=== PATIENT | female | born 1990 | race Hispanic/Latino ===

== ENCOUNTER 2017-11-13 18:39 | Emergency (ER) | payer MEDICAID, SELFPAY ==
[2017-11-13 19:27] LABS: #Basophils 0.1 thou/uL (0.0-0.2); #Eosinphils 0.2 thou/uL (0.0-0.7); #Lymphocytes 2.6 thou/uL (1.20-3.40); #Monocytes 0.7 thou/uL (0.11-0.59); #Neutrophils 5.7 thou/uL (1.40-6.50); %Basophils 0.8 % (0.0-1.0); %Eosinophils 1.8 % (0.0-10.0); %Lymphocytes 28.2 % (21.0-51.0); %Monocytes 7.1 % (0.0-10.0); Hemoglobin 13.5 g/dL (12.0-16.0); Mean Corpuscular HGB CONC 34.2 g/dL (32.0-36.0); Mean Corpuscular Hemoglobin 30.4 pg (27.0-31.0); Mean Corpuscular Volume 88.9 fl (81.0-99.0); Mean Platelet Volume 7.2 fL (7.4-10.4); Platelet Count 349 thou/uL (130-400); RBC Distribution Width 11.3 % (11.5-14.5); Red Blood Cell (RBC) Count 4.43 mill/uL (4.20-5.40); White Blood Cell (WBC) Count 9.2 thou/uL (4.8-10.8)
[2017-11-13 19:36] LABS: Bilirubin Negative (Negative); Blood, Urine Moderate (Negative); Clarity CLOUDY (Clear); Glucose, Urine (Dipstick) Negative (Negative); Leukocyte Trace (Negative); Nitrite Negative (Negative); Protein, Urine (Dipstick) Trace mg/dL (Neg-Trace); Specific Gravity, Urine 1.016 (1.002-1.036); Urobilinogen 0.2 mg/dL (0.2-1.0)
[2017-11-13 19:37] LABS: Bacteria/HPF Rare-Few HPF (None Seen); Hyaline Casts/LPF 0-3 HYALINE CAST LPF (0-3 Hyaline)
[2017-11-13 19:38] LABS: Pregnancy Test - Urine (BHCG) Negative (Negative); Pregu Control Background? CLEAR/WHITE (CLR/WHITE); Pregu Control Bar Appear? YES (CONTROL BAR); Specific Gravity 1.016 (1.002-1.036)
[2017-11-13] MEDS ORDERED: diphenhydrAMINE 50 MG/ML VIAL ONE (19:45)
[2017-11-13] MEDS ORDERED: Metoclopramide 10 MG/10 ML UDCUP ONE (19:45)
[2017-11-13] MEDS ORDERED: Ketorolac Tromethamine 30 MG/ML VIAL ONE (19:45)
[2017-11-13 19:48] LABS: ALT (SGPT) 119 U/L (8-55); AST (SGOT) 76 U/L (5-34); Albumin 4.7 g/dL (3.5-5.0); Alkaline Phosphatase 95 U/L (40-150); Anion Gap 13 mmol/L (10-20); BUN (Urea Nitrogen) 9 mg/dL (7.0-18.7); Bilirubin, Total 0.3 mg/dL (0.2-1.2); Calc. Creatinine Clearance 0 mL/min (70-130); Calcium 9.6 mg/dL (7.8-10.44); Carbon Dioxide 26 mmol/L (22-29); Chloride 102 mmol/L (98-107); Estimated GFR-MDRD Greater than 90; Globulin 3.5 g/dL (2.4-3.5); Glucose 97 mg/dL (70-105); Potassium 3.6 mmol/L (3.5-5.1); Protein, Total 8.2 g/dL (6.0-8.3); Sodium 137 mmol/L (136-145)
[2017-11-13] MEDS ORDERED: Ondansetron ODT 4 MG TAB ONE (19:55)
== END 2017-11-13 21:49 | disposition home or self-care (01) ==
LOC: ERS 18:39
DX: R51 Headache (principal)
CPT/HCPCS: 36415; 80053; 81003; 81015; 81025; 85025; 87086; 96361; 96374; 96375; J1200; J1885; Q0162

== ENCOUNTER 2019-10-30 09:41 | Emergency (ER) | payer SELFPAY ==
[2019-10-30 10:31] LABS: #Lymphocytes 1.5 thou/uL (1.20-3.40); #Monocytes 0.4 thou/uL (0.11-0.59); #Neutrophils 10.4 thou/uL (1.40-6.50); %Basophils 0.2 % (0.0-1.0); %Eosinophils 0.3 % (0.0-10.0); %Monocytes 3.4 % (0.0-10.0); %Neutrophils 84.1 % (42.0-75.0); Hemoglobin 13.2 g/dL (12.0-16.0); Mean Corpuscular HGB CONC 34.9 g/dL (32.0-36.0); Mean Corpuscular Hemoglobin 31.4 pg (27.0-31.0); Mean Corpuscular Volume 89.8 fL (78.0-98.0); Mean Platelet Volume 8.5 fL (7.4-10.4); Platelet Count 250 thou/uL (130-400); RBC Distribution Width 11.9 % (11.5-14.5); White Blood Cell (WBC) Count 12.4 thou/uL (4.8-10.8)
[2019-10-30 10:38] LABS: BHCG - Serum POSITIVE (NEGATIVE); Pregs Control Background? CLEAR/WHITE (CLR/WHITE); Pregs Control Bar Appear? YES (CONTROL BAR)
[2019-10-30 10:48] LABS: ALT (SGPT) 10 U/L (8-55); AST (SGOT) 11 U/L (5-34); Albumin 4.1 g/dL (3.5-5.0); Alkaline Phosphatase 58 U/L (40-110); Anion Gap 13 mmol/L (10-20); BUN (Urea Nitrogen) 7 mg/dL (7.0-18.7); Bilirubin, Total 0.3 mg/dL (0.2-1.2); Calc. Creatinine Clearance 0 mL/min (70-130); Calcium 9.1 mg/dL (7.8-10.44); Carbon Dioxide 21 mmol/L (22-29); Chloride 107 mmol/L (98-107); Estimated GFR-MDRD Greater than 90; Globulin 3.3 g/dL (2.4-3.5); Glucose 99 mg/dL (70-105); Lipase 11 U/L (8-78); Potassium 3.7 mmol/L (3.5-5.1); Protein, Total 7.4 g/dL (6.0-8.3); Sodium 137 mmol/L (136-145)
[2019-10-30] MEDS ORDERED: Acetaminophen 500 MG TAB ONE (10:56)
[2019-10-30 11:26] LABS: Bacteria/HPF None Seen HPF (None Seen)
[2019-10-30 11:30] LABS: Bilirubin Negative (Negative); Blood, Urine Trace (Negative); Clarity Extra Turbid (Clear); Glucose, Urine (Dipstick) Normal (Negative); Leukocyte 25 Leu/uL (Negative); Nitrite Negative (Negative); Protein, Urine (Dipstick) 20 mg/dL (Neg-Trace); Urobilinogen Normal mg/dL (Less than 2)
--- NOTE | 2019-10-30 12:04 | ULT ---
LIMITED OB ULTRASOUND GREATER THAN 14 WEEKS WELL EVALUATION OF THE RIGHT LOWER QUADRANT: HISTORY: Right lower quadrant pain. Evaluate intrauterine . FINDINGS: A single viable intrauterine fetus is noted. heart rate 132 b.p.m. Amniotic fluid is within n ormal limits. Placenta appears to be primarily right-sided and posterior and low-lying with possible placenta previa at this early age. stomach and lower extremities were visualized. Otherwise, anatomy was incompletely seen. Biometry: BPD 2.5 cm-14 weeks 3 days Head circumference 9.5 cm-14 weeks 3 days Abdominal circumference 8.0 cm-14 weeks 3 days Femur length 1.5 cm-14 weeks 2 days Right ovary is visualized measuring 1.9 x 3.3 x 3.5 cm. Left ovary is visualized measuring 3.4 x 1.6 x 3.5 cm VASCULAR DUPLEX WITH COLOR AND SPECTRAL DOPPLER IMAGING: There is flow documented to both ovaries. No evidence for ovarian torsion. No abnormal pelvic fluid collection. Evaluation of the right lower quadrant region demonstrates no evidence for abscess or abnormal fluid collection. A normal appendix was not visualized. IMPRESSION: 1. Early viable intrauterine at 14 weeks 2 days, estimated date of confinement 04/27/2020. 2. Somewhat low-lying posterior right-sided placenta. 3. No pelvic abscess or abnormal fluid collection. 4. Unremarkable right and left ovaries. 5. Right lower quadrant evaluation demonstrated no evidence for abscess or abnormal fluid collection . A normal appendix is not visualized. POS: [facility]
== END 2019-10-30 12:45 | disposition home or self-care (01) ==
LOC: ERS 09:41
DX: O99.89 Other specified diseases and conditions complicating pregnancy, childbirth and the puerperium (principal); R10.31 Right lower quadrant pain; O21.9 Vomiting of pregnancy, unspecified; Z3A.14 14 weeks gestation of pregnancy
CPT/HCPCS: 36415; 76815; 80053; 81003; 81015; 83690; 84703; 85025

== ENCOUNTER 2020-02-25 13:27 | Inpatient (IN) | payer OTHER, SELFPAY ==
[2020-02-25 14:18] VITALS: BMI 37.8
--- NOTE | 2020-02-25 14:27 | PDOC.FPROB ---
FMR OB H&P: HPI - History of Present Illness Chief Complaint: preE work up History of Present Illness: Pt is a 29 yo @30.6wks via LMP/.6wk sono presents for evaluation of preE. Pt was seen in clinic last week on and found to have elevated pressures 140s/90s. They did a preE workup and found an elevated urine protein. They attempted to contact patient but were unable to reach her until today. She reported that she has been taking her blood pressure at home and today it was 160/80. [facility] physician advised her to come to hospital. She also complains of headache for 1 week, twice a day lasting about 20 minutes and associated vision changes (spots). Minor edema of feet noted daily. Denies abdominal pain, contractions, CP, SOB, vaginal bleeding, discharge or loss of fluid. Of note, pt had symptoms of COVID starting on January 27 and tested positive on January 31. FMR OB H&P: Current - Care : 3 Para: 2 Gestational age: 30.6wks Dating Criteria: LMP/06.05wk sono - OB Labs Blood type: A RH: positive HIV: negative RPR: negative HepBsAg: negative Rubella: immune Gonorrhea: negative Chlamydia: negative 1 hour gtt: 111 H&H: 11.6/34.1 on 02/20/20 Platelets: 268 Additional labs: TSH 3.87 A1C 5.2 HPV + Spot Prot/Cr 0.32 on 02/20/20 FMR OB H&P: History - Past Medical History PMH: none - OB History OB History: LTCS 2010, [employer] - [employer] History [employer] History: Pap LSIL - Surgical History Sx History: 2011 - Social History Social History: no T/A/D FMR OB H&P: Medications - Current Home Medications: Medication Instructions Recorded Confirmed Type PNV#24/Iron AA Gisela/FA/DHA 1 each PO DAILY 02/12/16 02/25/20 History [ DHA+Complete ] Allergies/Adverse Reactions: Allergies Allergy/AdvReac Type Severity Reaction Status Date / Time No Known Allergies Allergy Verified 02/25/20 14:16 FMR OB H&P: ROS - Review of Systems General: denies: fever/chills Eyes: reports: floaters ENT: denies: nasal congestion Cardiovascular: denies: chest pain, palpitation Respiratory: denies: cough, congestion Gastrointestinal: denies: abdominal pain, nausea, vomiting Genitourinary (Female): denies: dysuria, vaginal discharge, vaginal bleeding, contractions Musculoskeletal: denies: pain Neurologic: denies: numbness, syncope Integumentary: denies: itching, rash Hematologic/Lymphatic: denies: prolonged or excessive bleeding FMR OB H&P: Vital Signs - Maternal Vital signs: 143/88, 145/80 - Heart Tones Baseline: 150 Variability: moderate Acceleration: present Deceleration: absent Category: category 1 FMR OB H&P: Physical Exam - Physical Exam General: NAD HEENT: normocephalic and atraumatic, grossly normal vision, grossly normal hearing Neck: supple, trachea midline Breast: symmetric Heart: RRR, normal S1/S2 General: CTAB, no respiratory distress Abdomen: soft, gravid Musculoskeletal: pulses present Neurological: cranial nerves II through XII intact Skin: no rash Lymphatic: no unusual bruising or bleeding Psychiatric: intact recent and remote memory FMR OB H&P: A/P Discussion: Date/Time: 02/25/20 1427 29yo @30.6wks presents for preE workup PIH -newly diagnosed, systolic pressure 140s last week at [facility], today was 160/80 at home -Urine Prot/Cr 0.32 at [facility] on 02/20/20 -serial BPs, NST qshift, CBC, CMP, Urine Prot/Cr sIUP -FHT Cat 1, continue external monitor -f/u outpatient at [facility] Hx of COVID -positive test on 02/01/20 -[place], currently asymptomatic Dispo: Stable, here for PIH and preE work up, possible admit for observation pending labs and BPs LOS<48hrs. This H&P was discussed with [Edmond] and [Ravindra] who agree with the above documentation and plan. Addendum - Attending - Attending Attestation Date/Time: 02/28/20 0908 I personally evaluated the patient and discussed the management with Dr. maya I agree with the History, Examination, Assessment and Plan documented above with any addition or exceptions noted below. PT with persistent mild range pressures, p/c ratio of 1, headache resolved with tylenol. Will admit for bp monitoring and steroids.
[2020-02-25] MEDS ORDERED: hydrALAZINE 20 MG/ML VIAL SLOW IVP PRN ×2 (14:34→15:51)
[2020-02-25 14:53] LABS: #Eosinphils 0.1 thou/uL (0.0-0.7); #Lymphocytes 2.2 thou/uL (1.20-3.40); #Monocytes 0.7 thou/uL (0.11-0.59); %Basophils 0.3 % (0.0-1.0); %Eosinophils 0.6 % (0.0-10.0); %Lymphocytes 19.8 % (21.0-51.0); %Monocytes 6.7 % (0.0-10.0); %Neutrophils 72.6 % (42.0-75.0); Hemoglobin 13.1 g/dL (12.0-16.0); Mean Corpuscular HGB CONC 33.8 g/dL (32.0-36.0); Mean Corpuscular Hemoglobin 30.6 pg (27.0-31.0); Mean Corpuscular Volume 90.6 fL (78.0-98.0); Platelet Count 244 thou/uL (130-400); RBC Distribution Width 11.6 % (11.5-14.5); Red Blood Cell (RBC) Count 4.29 mill/uL (4.20-5.40); White Blood Cell (WBC) Count 11.1 thou/uL (4.8-10.8)
[2020-02-25 15:15] LABS: ALT (SGPT) 9 U/L (8-55); AST (SGOT) 14 U/L (5-34); Albumin 3.5 g/dL (3.5-5.0); Alkaline Phosphatase 155 U/L (40-110); Anion Gap 13 mmol/L (10-20); BUN (Urea Nitrogen) 11 mg/dL (7.0-18.7); Bilirubin, Total 0.2 mg/dL (0.2-1.2); Calc. Creatinine Clearance 212 mL/min (70-130); Calcium 8.7 mg/dL (7.8-10.44); Carbon Dioxide 19 mmol/L (22-29); Chloride 105 mmol/L (98-107); Estimated GFR-MDRD Greater than 90; Globulin 3.2 g/dL (2.4-3.5); Glucose 79 mg/dL (70-105); Potassium 4.1 mmol/L (3.5-5.1); Protein, Total 6.7 g/dL (6.0-8.3); Sodium 133 mmol/L (136-145)
[2020-02-25] MEDS ORDERED: Ondansetron PF 4 MG/2 ML Vial IVP PRN (15:51)
[2020-02-25] MEDS ORDERED: Promethazine HCl 25 MG/ML VIAL IM PRN (15:51)
[2020-02-25] MEDS ORDERED: Acetaminophen 500 MG TAB PO SCH (21:15)
[2020-02-25] MEDS: Betamet Acet/Betamet Na Ph 30 MG/5 ML VIAL IM SCH (22:56)
--- NOTE | 2020-02-25 22:58 | PDOC.BPN ---
- Brief Progress Note Patient's BP improved with monitoring, was in mild range. Protein:Creatinine ratio was 1. Patient had FINNEY that was improved with 1 dose of Tylenol. Will admit to PP floor to continue to monitor BP and sx. A/P: 29yo @30.6wks presents for preE workup PIH -newly diagnosed, systolic pressure 140s last week at [facility], today was 160/80 at home, improving to 120s/80s in triage -Urine Prot/Cr 0.[address] [facility] on 02/20/20, 1.0 on 02/25/20 in triage -serial BPs q2h, NST qshift, CBC, CMP sIUP - NST BID -f/u outpatient at [facility] Hx of COVID -positive test on 02/01/20 -[place], currently asymptomatic Dispo: Stable, here for PIH and preE work up, admit for observation of sx and BPs LOS likely <48hrs.
[2020-02-26 05:18] LABS: Hemoglobin 14.1 g/dL (12.0-16.0); Mean Corpuscular HGB CONC 35.2 g/dL (32.0-36.0); Mean Corpuscular Hemoglobin 32.3 pg (27.0-31.0); Mean Corpuscular Volume 91.8 fL (78.0-98.0); Mean Platelet Volume 8.9 fL (7.4-10.4); Platelet Count 246 thou/uL (130-400); RBC Distribution Width 11.5 % (11.5-14.5); Red Blood Cell (RBC) Count 4.37 mill/uL (4.20-5.40); White Blood Cell (WBC) Count 11.5 thou/uL (4.8-10.8)
[2020-02-26 05:40] LABS: ALT (SGPT) 11 U/L (8-55); AST (SGOT) 15 U/L (5-34); Albumin 3.6 g/dL (3.5-5.0); Alkaline Phosphatase 168 U/L (40-110); Anion Gap 12 mmol/L (10-20); BUN (Urea Nitrogen) 14 mg/dL (7.0-18.7); Bilirubin, Total 0.2 mg/dL (0.2-1.2); Calc. Creatinine Clearance 192 mL/min (70-130); Calcium 9.3 mg/dL (7.8-10.44); Carbon Dioxide 19 mmol/L (22-29); Chloride 105 mmol/L (98-107); Estimated GFR-MDRD Greater than 90; Globulin 3.6 g/dL (2.4-3.5); Glucose 114 mg/dL (70-105); Potassium 4.9 mmol/L (3.5-5.1); Protein, Total 7.2 g/dL (6.0-8.3); Sodium 131 mmol/L (136-145)
--- NOTE | 2020-02-26 06:56 | PDOC.OBAPN ---
FMR OB AP PN: Sub - Interval History Hospital Day: 2 Chief Complaint: none, resting comfortably Indentification: 29F @ 31wga admitted for BP monitoring, diagnosed with pre -e Interval History: FINNEY resolved, BP stable this morning, s/p 1 dose of steroids FMR OB AP PN: Obj - Maternal Vital signs: BP: [127/75] HR: [73] RR: [17] Pox: [99]% on [RA] Wt: [90.71kg] FMR OB AP PN: Exam - Physical Exam General: NAD, awake, alert and oriented HEENT: normocephalic and atraumatic, EOMI Neck: supple, FROM Chest: non-tender to palpation Heart: RRR, normal S1/S2 General: CTAB, no respiratory distress Abdomen: soft, gravid Musculoskeletal: normal gait and station, pulses present, FROM in all four extremities Neurological: cranial nerves II through XII intact, no focal deficit Skin: no rash, good tugor Lymphatic: no unusual bruising or bleeding, no purpura Psychiatric: intact recent and remote memory, good judgement and insight, normal mood and affect FMR OB AP PN: Data - Labs Lab results: Laboratory Results - last 24 hr 02/25/20 02/25/20 02/25/20 13:45 13:45 14:43 WBC RBC Hgb Hct MCV MCH MCHC RDW Plt Count MPV Neutrophils % Lymphocytes % Monocytes % Eosinophils % Basophils % Neutrophils # Lymphocytes # Monocytes # Eosinophils # Basophils # Sodium 133 L Potassium 4.1 Chloride 105 Carbon Dioxide 19 L Anion Gap 13 BUN 11 Creatinine 0.56 L Estimated GFR (MDRD) Greater than 90 Glucose 79 Calcium 8.7 Total Bilirubin 0.2 AST 14 ALT 9 Alkaline Phosphatase 155 H Serum Total Protein 6.7 Albumin 3.5 Globulin 3.2 Albumin/Globulin Ratio 1.1 L U Random Total Protein 79 H Urine Creatinine 79.93 02/25/20 02/26/20 02/26/20 14:43 04:43 04:43 WBC 11.1 H 11.5 H RBC 4.29 4.37 Hgb 13.1 14.1 Hct 38.9 40.1 MCV 90.6 91.8 MCH 30.6 32.3 H MCHC 33.8 35.2 RDW 11.6 11.5 Plt Count 244 246 MPV 9.0 8.9 Neutrophils % 72.6 Lymphocytes % 19.8 L Monocytes % 6.7 Eosinophils % 0.6 Basophils % 0.3 Neutrophils # 8.0 H Lymphocytes # 2.2 Monocytes # 0.7 H Eosinophils # 0.1 Basophils # 0.0 Sodium 131 L Potassium 4.9 Chloride 105 Carbon Dioxide 19 L Anion Gap 12 BUN 14 Creatinine 0.62 Estimated GFR (MDRD) Greater than 90 Glucose 114 H Calcium 9.3 Total Bilirubin 0.2 AST 15 ALT 11 Alkaline Phosphatase 168 H Serum Total Protein 7.2 Albumin 3.6 Globulin 3.6 H Albumin/Globulin Ratio 1.0 L U Random Total Protein Urine Creatinine FMR OB AP PN: A/P - Problem List (1) Pre-eclampsia Current Visit: Yes Status: Acute Code(s): O14.90 - UNSPECIFIED PRE-ECLAMPSIA , UNSPECIFIED TRIMESTER Disposition: 29yo @31wks is admitted for BP monitoring for pre-e #Pre-eclampsia -newly diagnosed, systolic pressure 140s last week at [facility], yesterday was 160/80 at home -multiple elevated BP last night, stable BP 120s-130s/70s-80s systolic this morning -Urine Prot/Cr 0.32 at [facility] on 02/20/20, 0.98 on 02/24 -received 1 dose of steroids last night, plan for second dose today -continue closely monitoring BP -patient reports that she has a BP cuff at home, if BP mild and patient is discharged (possibly tmrw) will need 2x/week f/u at [facility] after discharge for close monitoring of BP and weekly labs #sIUP -@31wks -NST qshift, will continue to monitor -f/u outpatient at [facility] 2x/wk after discharge #Hx of COVID -positive test on 02/01/20 -[place], currently asymptomatic Dispo: Stable, BP improved this morning. Patient to have BP monitoring closely today with second dose of steroids later this evening. If BP continue to be mild without pressures in the severe range can consider discharge, possibly tomorrow, with close f/u at [facility] (2x/wk visits with weekly labs) Discussion: Date/Time: 02/26/20 0654 This H&P was discussed with Dr. Waite who agrees with the above documentation and plan. Signature: Gwen Agudelo MD PGY-2
--- NOTE | 2020-02-26 10:56 | PDOC.BPN ---
<Gwen Agudelo - Last Filed: 02/26/20 10:55> - Brief Progress Note Patient doing well, no complaints. NST: reactive strip, baseline 140, moderate variability, +accels Discussed plan to continue to monitor BP throughout the day, patient agreeable with the plan of care. <Grey Saleh - Last Filed: 02/26/20 11:22> Addendum - Attending - Attending Attestation Date/Time: 02/26/20 1122 I personally evaluated the patient and discussed the management with Dr. Agudleo. I agree with the Assessment and Plan documented above.
[2020-02-26] MEDS: Betamet Acet/Betamet Na Ph 30 MG/5 ML VIAL IM SCH (22:27)
--- NOTE | 2020-02-27 06:50 | PDOC.OBAPN ---
FMR OB AP PN: Sub - Interval History Chief Complaint: none, FINNEY resolved, denies vision changes, swelling Indentification: 29F @ 31.1wga admitted for BP monitoring for pre-e Interval History: BP have been stable, no severe range pressures; NST reactive qshift FMR OB AP PN: Obj - Maternal Vital signs: BP: [128/76] HR: [80] RR: [18] Tmax: [98.3F] Pox: [96]% on [RA] Wt: [90.71kg] - Urine output I&O: 02/25/20 02/26/20 02/27/20 06:59 06:59 06:59 Intake Total 450 Balance 450 FMR OB AP PN: Exam - Physical Exam General: NAD, awake, alert and oriented HEENT: normocephalic and atraumatic, EOMI Neck: supple, FROM Chest: non-tender to palpation Heart: RRR, normal S1/S2 General: CTAB, no respiratory distress Abdomen: soft, gravid Musculoskeletal: pulses present, FROM in all four extremities Neurological: cranial nerves II through XII intact, no tremor Skin: no rash, good tugor Lymphatic: no unusual bruising or bleeding, no purpura Psychiatric: intact recent and remote memory, good judgement and insight FMR OB AP PN: A/P - Problem List (1) Pre-eclampsia Current Visit: Yes Status: Acute Code(s): O14.90 - UNSPECIFIED PRE-ECLAMPSIA , UNSPECIFIED TRIMESTER Disposition: 29yo @31.1wks is admitted for BP monitoring for pre-e #Pre-eclampsia -newly diagnosed, systolic pressure 140s last week at [facility], 02/24 was 160/80 at home -stable BP 120s-130s/70s-80s throughout the day yesterday, highest 140/80 -Urine Prot/Cr 0.32 at [facility] on 02/20/20, 0.98 on 02/24 -received 2nd dose of steroids last night -continue closely monitoring BP, encouraged patient to monitor BP TID at home and record them; discussed coming to ED with any BP >160/110 -patient reports that she has a BP cuff at home, plan to d/c with close f/u. Will schedule appt for patient at [facility] 1x/week, with weekly labs, and testing BPP/NST 1x/week with [facility]. #sIUP -@31.1wks -NST al NST has been reactive -f/u outpatient at [facility] 1x/wk and [facility] US 1x/wk for testing after discharge #Hx of COVID -positive test on 02/01/20 -[place], currently asymptomatic Dispo: Stable, BP stable throughout the day yesterday without any severe pressures. S/p 2 doses of steroids. Patient to monitor BP TID at home and record values. Patient to be discharged today, with close f/u at [facility] (1x/wk visits with weekly labs) and with [facility] (1x/wk for BPP/NST). Will monitor BP at both locations. ED precautions discussed. Discussion: Date/Time: 02/27/20 0648 This H&P was discussed with [Therese] who agrees with the above documentation and plan. Signature: Gwen Agudelo MD PGY-2 Addendum - Attending - Attending Attestation Date/Time: 02/27/20 0705 I personally evaluated the patient and discussed the management with Dr. Agudelo. I agree with the Assessment and Plan documented above.
[2020-02-27 08:10] VITALS: BP 125/70; TEMP 98.5
== END 2020-02-27 09:58 | disposition home or self-care (01) | DRG 833 ==
LOC: L&D/OP 13:27 → 3SE 22:30
PROVIDERS: ADMIT Obstetrics & Gynecology; ATTEND Obstetrics & Gynecology
DX: O13.3 Gestational [pregnancy-induced] hypertension without significant proteinuria, third trimester (principal); Z3A.30 30 weeks gestation of pregnancy; O14.93 Unspecified pre-eclampsia, third trimester
CPT/HCPCS: 36415; 36600; 59025; 80053; 82570; 84156; 85025; 85027; 99285; J0702

== ENCOUNTER 2020-02-28 13:16 | Inpatient (IN) | payer MEDICAID, OTHER, SELFPAY ==
[2020-02-28] MEDS ORDERED: hydrALAZINE 20 MG/ML VIAL SLOW IVP PRN (13:55)
--- NOTE | 2020-02-28 13:56 | PDOC.FPROB ---
FMR OB H&P: HPI - History of Present Illness Chief Complaint: Sent from [facility] for IUGR, 11/05 BPP Indentification: 29yo @31.2wks by LMP c/w 11.6wk US History of Present Illness: 29yo @31.2wks by LMP c/w 11.6wk US presents at recommendation of [facility]. She was seen today and found to have multiple severe range pressures with the lowest BP being 152/88. BPP 11/05. She reports minimal FM since last night. Endorses some SOB and FINNEY. Intermittent edema. Discharged yesterday after admission for preeclampsia workup. BPs were controlled at that time, Urine pro/ cr 0.9. Received steroids at that time. Primary Care Physician: Dr Pruitt FMR OB H&P: Current - Care : 3 Para: 2001 Gestational age: 30.6wks Due date: 04/29/20 Dating Criteria: LMP c/w 11.6wk US Course/Complications: Preeclampsia. COVID on 02/01/20 - OB Labs Blood type: A RH: positive HIV: negative RPR: negative HepBsAg: negative Rubella: immune Gonorrhea: negative Chlamydia: negative 1 hour gtt: 111 A1c: 5.2 H&H: 14.1/40.1 on 02/26/20 Platelets: 246 on 02/26/20 - First Trimester Ultrasound First trimester: 11.6wks FMR OB H&P: History - Past Medical History PMH: Denies - OB History OB History: LTCS 2011 @37wks, 2015 - [employer] History [employer] History: Pap LSIL - Surgical History Sx History: 2010 - Social History Social History: Denies alcohol, drug and tobacco use - Family History Family History: Denies FMR OB H&P: Medications - Current Home Medications: Medication Instructions Recorded Confirmed Type PNV#24/Iron AA Gisela/FA/DHA 1 each PO DAILY 02/12/16 02/28/20 History [ DHA+Complete ] Allergies/Adverse Reactions: Allergies Allergy/AdvReac Type Severity Reaction Status Date / Time No Known Allergies Allergy Verified 02/28/20 14:01 FMR OB H&P: ROS - Review of Systems General: denies: fever/chills, fatigue Eyes: denies: vision changes, scotomas, floaters ENT: denies: nasal congestion, rhinorrhea Cardiovascular: reports: edema. denies: chest pain, palpitation Respiratory: reports: shortness of breath. denies: cough, congestion Gastrointestinal: denies: abdominal pain, nausea, vomiting Genitourinary (Female): denies: vaginal discharge, vaginal bleeding, contractions, vaginal pressure Neurologic: denies: numbness Integumentary: denies: itching, rash, lesions FMR OB H&P: Vital Signs - Maternal Vital signs: BP: HR: Temp: RR: - Heart Tones Baseline: 150 Variability: minimal Acceleration: absent Deceleration: absent Category: category 2 FMR OB H&P: Physical Exam - Physical Exam General: NAD, awake, alert and oriented HEENT: normocephalic and atraumatic, PERRLA, MMM, conjunctiva clear, no scleral icterus, grossly normal hearing Neck: supple, trachea midline Heart: RRR, no murmurs/rubs/gallops General: CTAB, no respiratory distress, good air movement, no rales/rhonchi, no wheezing, no retractions Abdomen: soft, gravid, bowel sound present Musculoskeletal: pulses present, no misalignment/asymmetry, no atrophy Neurological: no focal deficit Skin: no rash, good tugor Deviation from normal: No edema Lymphatic: no unusual bruising or bleeding Psychiatric: intact recent and remote memory, good judgement and insight, normal mood and affect - Pelvic Exam Vulva: no masses, no lesions, no discharge, no blood Membranes: Intact Presentation: Cephalic at [facility] US today FMR OB H&P: A/P Disposition: 29yo @31.2wks by LMP c/w 11.6wk US presents for preeclampsia, IUGR, BPP /8 sIUP with NRFHTs & IUGR - Anesthesia consulted - [facility] report faxed over with recommendation for delivery. Pt had planned to have rLTCS for due to prior. - [place] 6% for gestational age - Diet: NPO - Received last dose of steroids on 02/25, concern for delivery at that time due to preeclampsia - Thomas consulted - Will admit for rLTCS, labs pending at this time. Preeclampia - BPs currently <140/90 - Continue to monitor closely - Likely Mg after delivery COVID positive on 01/31 - Asymptomatic. Out of window for isolation. Does not meet criteria for retesting. LSIL/HPVHR+ - Colpo 6wk PP Discussion: Date/Time: 02/28/20 9515 This H&P was discussed with Dr. Saleh and Dr. Cristobal who agree with the above documentation and plan. Addendum - Attending - Attending Attestation Date/Time: 02/28/20 1621 I personally evaluated the patient and discussed the management with Dr. Pruitt. 31 week IUP with prev. C/S and h/o COVID now with PIH and IUGR. Steroids given less than 1 week ago. Seen in MFM office with BPP of 11/05, advised to deliver. For repeat C/S once labs are back. I agree with the History, Examination, Assessment and Plan documented above.
[2020-02-28] MEDS ORDERED: Ondansetron PF 4 MG/2 ML Vial IVP PRN (14:18)
[2020-02-28] MEDS ORDERED: Promethazine HCl 25 MG/ML VIAL IM PRN (14:18)
[2020-02-28] MEDS: Lactated Ringer's 1,000 ML IV SCH (14:20)
[2020-02-28] MEDS ORDERED: Bicitra 30 ML UDCUP ONE (14:28)
[2020-02-28] MEDS ORDERED: Bicitra 30 ML UDCUP PO SCH (14:30)
[2020-02-28] MEDS ORDERED: CEFAZOLIN 2 GM in Premix Bag 1 BAG IVPB SCH (14:30)
[2020-02-28 14:37] LABS: #Monocytes 1.2 thou/uL (0.11-0.59); #Neutrophils 9.9 thou/uL (1.40-6.50); %Basophils 0.1 % (0.0-1.0); %Eosinophils 0.3 % (0.0-10.0); %Lymphocytes 20.9 % (21.0-51.0); %Monocytes 8.5 % (0.0-10.0); %Neutrophils 70.2 % (42.0-75.0); Hemoglobin 12.2 g/dL (12.0-16.0); Mean Corpuscular HGB CONC 34.7 g/dL (32.0-36.0); Mean Corpuscular Hemoglobin 31.6 pg (27.0-31.0); Mean Platelet Volume 9.1 fL (7.4-10.4); Platelet Count 260 thou/uL (130-400); RBC Distribution Width 11.6 % (11.5-14.5); Red Blood Cell (RBC) Count 3.86 mill/uL (4.20-5.40); White Blood Cell (WBC) Count 14.2 thou/uL (4.8-10.8)
[2020-02-28] MEDS ORDERED: MORPHINE 5 MG/10 ML PF VIAL ONE (14:46)
[2020-02-28] MEDS ORDERED: Morphine 4 MG/ML VIAL ONE (14:46)
[2020-02-28] MEDS ORDERED: Oxytocin 10 UNITS/ML VIAL ONE ×2 (14:47→15:55)
[2020-02-28] MEDS ORDERED: Ketorolac Tromethamine 30 MG/ML VIAL ONE (14:47)
[2020-02-28] MEDS ORDERED: Ondansetron PF 4 MG/2 ML Vial ONE (14:47)
[2020-02-28] MEDS ORDERED: PHENYLEPHRINE-NS 100 MCG/ML 10 ML SYRINGE ONE (14:48)
[2020-02-28] MEDS ORDERED: EPHEDRINE 25 MG/5 ML SYRINGE ONE (14:48)
[2020-02-28 14:55] LABS: ALT (SGPT) 8 U/L (8-55); AST (SGOT) 17 U/L (5-34); Albumin 3.5 g/dL (3.5-5.0); Alkaline Phosphatase 153 U/L (40-110); Anion Gap 12 mmol/L (10-20); BUN (Urea Nitrogen) 15 mg/dL (7.0-18.7); Bilirubin, Total 0.2 mg/dL (0.2-1.2); Calc. Creatinine Clearance 0 mL/min (70-130); Carbon Dioxide 22 mmol/L (22-29); Chloride 106 mmol/L (98-107); Estimated GFR-MDRD Greater than 90; Globulin 3.2 g/dL (2.4-3.5); Glucose 85 mg/dL (70-105); Protein, Total 6.7 g/dL (6.0-8.3); Sodium 136 mmol/L (136-145)
[2020-02-28 15:16] LABS: Syphilis Antibody Nonreactive (Nonreactive); Syphilis Antibody Index 0.03 S/CO (<1.00 Non-Reactive)
[2020-02-28 15:17] LABS: HBSAg Index 0.17 S/CO (0-0.99); Hep B Surf Ag Non-Reactive S/CO (NonReactive)
[2020-02-28 15:26] VITALS: BMI 37.5
[2020-02-28] MEDS ORDERED: Fentanyl 100 MCG/2 ML VIAL ONE ×2 (15:37→16:21)
[2020-02-28] MEDS ORDERED: Dexamethasone 4 mg/ml Vial ONE (15:40)
[2020-02-28 16:12] LABS: Actual Bicarbonate (HCO3v) 27 mEq/L (22-28); Base Excess -1.2 mEq/L (-2.0 to +3.0); pH (Cord, venous) 7.28 (7.32-7.43)
[2020-02-28 16:13] LABS: Actual Bicarbonate (HCO3a) 25.1 mEq/L (22-28); Base Excess (BEa) -1.9 mEq/L (-2.0 to +3.0)
[2020-02-28] MEDS ORDERED: Calcium Gluconate 4.6 MEQ in Sodium Chloride 0.9% 100 ML IVPB PRN (16:41)
[2020-02-28] MEDS: Magnesium Sulfate 20 gm/500 ml 20 GM/500 ML BAG IVPB SCH (18:39)
--- NOTE | 2020-02-28 20:59 | PDOC.BPN ---
<Elliott Fuller - Last Filed: 02/28/20 20:57> - Brief Progress Note Magnesium Note Template S: Patient is a 29 yo who is s/p 31.2 wk LTCS 2/2 preE on 02/28/20 @ 1536. She endorses mild pain over incisional site and fatigue. Mg was started at 1630 2/2 preE. She denies SOB, FINNEY, vision changes. She has had 75 mL UOP over first two hours of Mg infusion- admission SCr is 0.58. She denied flatus and ambulation. O: BP: 155/91 - 7 elevated BP in 130s to 150s, 4 of those are 140-150 SBP. DBP in 80s-90s. Urine output is 75 mL/ 2 hrs General Appearance: sleepy, easily arousable, able to answer questions Cardiovascular: RRR, no MRG Lungs: CTAB, no crackles or wheezes Abdomen: Soft, NT, ND, uterus felt below umbilicus, incision dressed, CDI Extremities: no ankle clonus, 2+ patellar DTR A/P: Patient is a 29 yo who is s/p 31.2 wk LTCS 2/2 preE on 02/28/20 @ 1536 on MgSO4 for Preeclampsia No signs/symptoms of Mg toxicity (if there are none). Continue Mg treatment, next check 4 hrs @ 0030 Continue to monitor <Grey Saleh - Last Filed: 02/28/20 23:00> Addendum - Attending - Attending Attestation Date/Time: 02/28/20 8594 I personally evaluated the patient and discussed the management with Dr. Fuller and Dr. John. I agree with the History, Examination, Assessment and Plan documented above.
--- NOTE | 2020-02-29 00:45 | PDOC.BPN ---
<Elliott Fuller - Last Filed: 02/29/20 00:47> - Brief Progress Note Patient is a 29 yo who is s/p 31.2 wk LTCS 2/2 preE on 02/28/20 @ 1536. She endorses mild pain over incisional site and fatigue. She denies SOB, FINNEY, vision changes. Admission SCr is 0.58. She denied ambulation. BP: normotensive since last check, 120-130/70-80 Urine output is 325 mL/ 4 hrs General Appearance: sleepy, easily arousable, able to answer questions Cardiovascular: RRR, no MRG Lungs: CTAB, no crackles or wheezes Abdomen: Soft, NT, ND Extremities: no ankle clonus, 2+ patellar DTR A/P Patient is a 29 yo who is s/p 31.2 wk LTCS 2/2 preE on 02/28/20 @ 1536 on MgSO4 for Preeclampsia No signs/symptoms of Mg toxicity. Continue Mg treatment (started 1630 02/27), next check 4 hrs @ 0430 Continue to monitor <Grey Saleh - Last Filed: 02/29/20 01:05> Addendum - Attending - Attending Attestation Date/Time: 02/29/20 0104 I personally evaluated the patient and discussed the management with Dr. Fuller. I agree with the Assessment and Plan documented above.
[2020-02-29] MEDS ORDERED: Acetaminophen 325 MG TAB PO PRN (02:07)
[2020-02-29] MEDS ORDERED: Lanolin Ointment 7 GM TUBE TOP PRN (02:07)
[2020-02-29] MEDS: Lactated Ringer's 1,000 ML IV SCH (03:30)
[2020-02-29] MEDS: Magnesium Sulfate 20 gm/500 ml 20 GM/500 ML BAG IVPB SCH ×2 (04:20→15:33)
--- NOTE | 2020-02-29 04:28 | PDOC.BPN ---
<Elliott Fuller - Last Filed: 02/29/20 04:27> - Brief Progress Note Patient is a 29 yo who is s/p 31.2 wk LTCS 2/2 preE on 02/28/20 @ 1536. She endorses mild pain over incisional site. She denies SOB, FINNEY, vision changes. Admission SCr is 0.58. BP: normotensive since last check, 120-130/70-80 Urine output is 250 mL/ 4 hrs General Appearance: awake and alert, able to answer questions Cardiovascular: RRR, no MRG Lungs: CTAB, no crackles or wheezes Abdomen: Soft, NT, ND Extremities: no ankle clonus, 2+ patellar DTR A/P Patient is a 29 yo who is s/p 31.2 wk LTCS 2/2 preE on 02/28/20 @ 1536 on MgSO4 for Preeclampsia No signs/symptoms of Mg toxicity. Continue Mg treatment (started 1630 02/27), next check 4 hrs @ 0830 Continue to monitor <Grey Saleh - Last Filed: 02/29/20 06:09> Addendum - Attending - Attending Attestation Date/Time: 02/29/20 0609 I personally evaluated the patient and discussed the management with Dr. Fuller. I agree with the Assessment and Plan documented above.
[2020-02-29] MEDS: Ibuprofen 800 MG TAB PO SCH ×2 (06:09→13:52)
[2020-02-29 06:18] LABS: Hemoglobin 11.4 g/dL (12.0-16.0); Mean Corpuscular HGB CONC 34.3 g/dL (32.0-36.0); Mean Corpuscular Hemoglobin 31.8 pg (27.0-31.0); Mean Corpuscular Volume 92.7 fL (78.0-98.0); Mean Platelet Volume 8.4 fL (7.4-10.4); Platelet Count 232 thou/uL (130-400); RBC Distribution Width 11.6 % (11.5-14.5); Red Blood Cell (RBC) Count 3.59 mill/uL (4.20-5.40); White Blood Cell (WBC) Count 17.4 thou/uL (4.8-10.8)
--- NOTE | 2020-02-29 08:29 | PDOC.PP ---
Post Progress Note Weight Weight 90.265 kg Result Diagrams: 02/29/20 06:08 02/28/20 14:19 Additional Labs: Post Labs Blood Type A POSITIVE 02/28/20 14:19 Hep Bs Antigen Non-Reactive S/CO (NonReactive) 02/28/20 14:19 - Assessment/Plan 29yo s/p 31.2 wk LTCS 2/2 preE on 02/28/20 @1536. Denies SOB, FINNEY, vision changes, edema. BP: <120/90 Urine output is 300 over last 4 hrs General Appearance: No acute distress Cardiovascular: RRR, no MRG Lungs: CTAB, no crackles or wheezes Abdomen: Soft, NT, ND Extremities: no ankle clonus, 2+ patellar DTR A/P: 29yo who is s/p 31.2 wk LTCS 2/2 preE on 02/28/20 @1536 on MgSO4 for Preeclampsia No signs/symptoms of Mg toxicity. Continue Mg treatment (started 1630 02/27), next check 4 hrs @1230
[2020-02-29] MEDS ORDERED: Adacel (T-DAP) 0.5 ML SYRINGE IM ONE (09:00)
[2020-02-29] MEDS: Prenatal Vitamin 1 TAB PO SCH (10:54)
[2020-02-29] MEDS: Ferrous Sulfate 325 MG TAB PO SCH ×2 (10:54→22:52)
--- NOTE | 2020-02-29 12:57 | PDOC.BPN ---
- Brief Progress Note Mag check at 1235 Patient resting comfortably in bed. Endorses mild FINNEY that was worse this morning when she had elevated BPs. Now she rates her pain a 3/10. She states when her BPs were high she had flashes of light in her vision, but denies this since this morning. Denies CP, SOB, abdominal pain, swelling in arms, legs, or face. urine output: 450mL out in the last 12 hours. BP @ 1153 was 150/94, with other readings in the 120-130s SBP. DTRs intact, 2+ brachioradialis reflex. No clonus. Will continue to monitor.
--- NOTE | 2020-02-29 16:11 | PDOC.BPN ---
- Brief Progress Note Patient is a 29 yo who is s/p 31.2 wk LTCS 2/2 preE on 02/28/20 @ 1536. She denies SOB, FINNEY, vision changes. BP: most recently 126/71. However she did have a 146/101 @ 1332. Otherwise 120s- 130s systolic over 70s diastolic. Urine output is >700 in last 3 hours. General Appearance: awake and alert, able to answer questions Cardiovascular: RRR, no MRG Lungs: CTAB, no crackles or wheezes Abdomen: Soft, NT, ND Extremities: no ankle clonus, 2+ patellar DTR A/P Patient is a 29 yo who is s/p 31.2 wk LTCS 2/2 preE on 02/28/20 @ 1536 on MgSO4 for Preeclampsia No signs/symptoms of Mg toxicity. Continue Mg treatment (started 1630 02/27), Continue to monitor
--- NOTE | 2020-02-29 17:49 | PDOC.BPN ---
- Brief Progress Note OBARACELISN D/W Dr Aguayo. OK for floor. One Diastolic BP at 101 but isolated. We will oredr Lasix x 1 as 3rd space fluid may be mobilizing. Now off Mag
[2020-02-29] MEDS ORDERED: Furosemide 20 MG/2 ML VIAL SLOW IVP SCH (18:00)
--- NOTE | 2020-02-29 19:06 | PDOC.BPN ---
- Brief Progress Note Lasix held as UOP very adequate and diuresing well alone
--- NOTE | 2020-03-01 05:12 | PDOC.PP ---
Post Progress Note Post Day #: 2 Subjective: Doing well, no concerns. PO intake tolerated: yes Flatus: yes Ambulation: no Weight Weight 90.265 kg - Physical Examination General: NAD Cardiovascular: no m/r/g, RRR Respiratory: clear to auscultation bilaterally, non-labored breathing Abdominal: + bowel sounds, lochia, no distention, appropriately TTP Skin: CS incision dry & intact, no rash Neurological: no gross focal deficits Psychiatric: A&Ox3, normal affect Result Diagrams: 02/29/20 06:08 02/28/20 14:19 Additional Labs: Post Labs Blood Type A POSITIVE 02/28/20 14:19 Hep Bs Antigen Non-Reactive S/CO (NonReactive) 02/28/20 14:19 (1) Delivery by section Code(s): HRU0755 - Status: Acute (2) Pre-eclampsia Code(s): O14.90 - UNSPECIFIED PRE-ECLAMPSIA, UNSPECIFIED TRIMESTER Status: Acute - Assessment/Plan delivered via rLTCS @ 31.2wks EGA 2/2 preeclampsia and IUGR - PPD #2 - Pain is well controlled. - Not ambulating yet. Encourage her to walk this morning. Preeclampsia - Pressures overnight 135/80, 125/74, 126/70 - Diuresed well s/p 20mg lasix - s/p 24hours of magnesium IV therapy Dispo: Possible d/c, pending ambulation and close monitoring of blood pressures.
[2020-03-01] MEDS: Ibuprofen 800 MG TAB PO SCH ×4 (07:47→23:39)
--- NOTE | 2020-03-01 08:00 | OP ---
DATE OF PROCEDURE: 02/28/2020 RESIDENT SURGEON: Demetria Pruitt MD, PGY 2. OIL WELL SERVICE OPERATOR HELPER SURGEON: King Rosales DO. ADDITIONAL ATTENDING SURGEON: Grey Saleh MD, and Cherri Cristobal MD. PROCEDURE PERFORMED: Repeat low-transverse section with a low vertical incision minimally extending into active uterine segment. PREOPERATIVE DIAGNOSES: 1. intrauterine . 2. Previous section. 3. Previous vaginal after . 4. History of coronavirus disease on 02/01/2020. 5. Preeclampsia. 6. Intrauterine growth restriction. 7. Non-reassuring heart tones. POSTOPERATIVE DIAGNOSES: 1. intrauterine , delivered. 2. Previous section. 3. Previous vaginal after . 4. History of coronavirus disease on 02/01/2020. 5. Preeclampsia. 6. Intrauterine growth restriction. 7. Non-reassuring heart tones. 8. Low vertical uterine incision with minimal extension into active uterine segment. ANESTHESIA: Spinal. INDICATIONS: The patient is a 29-year-old G3, P 2-0-0-2 at 31.2 weeks by last menstrual period consistent with an 11.6 week ultrasound, who presented from [facility] for preeclampsia, intrauterine growth restriction and BPP 4/8 with reported no movement. PROCEDURE IN DETAIL: After risks, benefits, and alternatives were explained to the patient, she gave informed consent. Preoperative antibiotics included cefazolin 2 g IV. The patient was taken to the operating room and spinal anesthesia was initiated. She was placed in the supine position with the left tilt and prepped and draped in the usual sterile fashion. A Pfannenstiel incision was made with a scalpel and carried down to the level of the fascia, which was sharply nicked. The fascial cut was extended bilaterally with Chacon scissors. The inferior and superior edges of the cut fascial edges were elevated with Daniella clamps and underlying rectus muscles were sharply and bluntly dissected free. The recti were divided digitally and retracted manually. There was noted to be a large amount of omentum, which was carefully dissected and inspected for bleeds. The peritoneum was entered bluntly and retracted manually. Erik O was placed. Bladder flap was created with Metzenbaum scissors. Large bilateral uterine varicosities were noted requiring low vertical incision. An extension into the active segment was made with bandage scissors to make enough space for delivery of head. Allis clamp was used to rupture. Clear fluid was seen. The hysterotomy was extended manually. The infant was noted to be vertex and easily delivered by fundal pressure. Cord was clamped and cut, and grossly normal infant was handed to waiting nurse. Cord blood was obtained. Cord gas segment was cut. Placenta was expectantly extracted and found to be intact 3-vessel cord and possible area of abruption on gross visual exam. This was sent to Pathology. The uterus was externalized, and endometrium was curetted with a dry lap. The uterus was closed using 1 Monocryl. Following this, there were some areas that were noted to not be hemostatic, but due to large varicosities, imbricating layer was not attempted, a Floseal was applied and held and compressed for 3 minutes. Then, hysterotomy was again inspected and found to be hemostatic. The abdomen was suctioned free of clots. The uterus was internalized, and the hysterotomy was again noted to be hemostatic. The fascia was closed with a running nonlocking 0 PDS suture. The subcutaneous tissue was irrigated and bleeders were cauterized. The subcutaneous tissue was approximated using 2-0 plain gut. The skin was approximated with 4-0 Monocryl and dressing was applied. All counts were correct. The patient tolerated the procedure well and was taken to the recovery room in stable condition. QUANTITATIVE BLOOD LOSS: 560 mL. COMPLICATIONS: None. SPECIMENS: Cord blood sent to lab for blood type and placenta sent to Pathology, cord gas. FINDINGS: 1. Grossly normal male infant with Apgars of 8 and 9. 2. Placenta with 3-vessel cord sent to Pathology. DRAINS: Gillis to gravity, draining clear urine. Job ID: [id number]
[2020-03-01] MEDS: Prenatal Vitamin 1 TAB PO SCH (08:49)
[2020-03-01] MEDS: Simethicone Chewable 80 MG TAB PO PRN ×2 (08:49→18:19)
[2020-03-01] MEDS: HYDROcodone/Acetaminophen 5/325 mg Tablet PO PRN ×4 (08:49→23:39)
[2020-03-01] MEDS: Ferrous Sulfate 325 MG TAB PO SCH (08:53)
--- NOTE | 2020-03-02 06:22 | PDOC.PP ---
Post Progress Note Post Day #: 3 Subjective: Pain well controlled. Using breastpump. Baby still in NICU. Ambulating, tolerating PO. Lochia less than a period. PO intake tolerated: yes Flatus: yes Ambulation: yes Vital Signs (12 hours) Temp Pulse Resp BP 03/01/20 23:38 98.5 F 72 14 117/64 03/01/20 20:41 98.2 F 63 14 122/70 Weight Weight 90.265 kg - Physical Examination General: NAD Cardiovascular: no m/r/g, RRR Respiratory: clear to auscultation bilaterally, non-labored breathing Abdominal: + bowel sounds Neurological: no gross focal deficits Psychiatric: A&Ox3, normal affect Result Diagrams: 02/29/20 06:08 02/28/20 14:19 Additional Labs: Post Labs Blood Type A POSITIVE 02/28/20 14:19 Hep Bs Antigen Non-Reactive S/CO (NonReactive) 02/28/20 14:19 - Assessment/Plan delivered via rLTCS @31.2wks EGA 2/2 preeclampsia and IUGR - PPD #3 - Meeting PP milestones - Likely discharge home later today Preeclampsia - Pressures overnight <130/80 - s/p 24hours of mag IV - F/u at [facility] in 1 week, monitor BPs at home and bring to appt COVID positive on 01/31 - Asymptomatic. Out of window for isolation. Does not meet criteria for retesting. LSIL/HPVHR+ - Colpo 6wk PP Addendum - Attending - Attending Attestation Date/Time: 03/04/20 0855 I personally evaluated the patient and discussed the management with Dr. Pruitt. I agree with the History, Examination, Assessment and Plan documented above.
[2020-03-02] MEDS: Prenatal Vitamin 1 TAB PO SCH (08:22)
[2020-03-02] MEDS: Ibuprofen 800 MG TAB PO SCH ×2 (08:22→14:32)
[2020-03-02] MEDS: HYDROcodone/Acetaminophen 5/325 mg Tablet PO PRN (08:22)
[2020-03-02] MEDS: Ferrous Sulfate 325 MG TAB PO SCH (11:34)
[2020-03-02 16:39] VITALS: BP 130/76; TEMP 98.6
== END 2020-03-02 19:31 | disposition home or self-care (01) | DRG 788 ==
LOC: L&D/OP 13:16 → L&D 13:17 → 3SW 02-29 21:38
PROVIDERS: ADMIT Obstetrics & Gynecology; ATTEND Obstetrics & Gynecology
PROC: 10D00Z1 Extraction of Products of Conception, Low, Open Approach (ICD-10-PCS; principal; 2020-02-29)
DX: O14.94 Unspecified pre-eclampsia, complicating childbirth (principal); Z37.0 Single live birth; O60.14X0 Preterm labor third trimester with preterm delivery third trimester, not applicable or unspecified; Z3A.31 31 weeks gestation of pregnancy; O76 Abnormality in fetal heart rate and rhythm complicating labor and delivery; O36.5930 Maternal care for other known or suspected poor fetal growth, third trimester, not applicable or unspecified
CPT/HCPCS: 36415; 51702; 80053; 82805; 83735; 85025; 85027; 86780; 86850; 86900; 86901; 87340; 88307; J0690; J1100; J1885; J2270; J2274; J2405; J2550; J2590; J3010; J3475